=== PATIENT | male | born 1960 | race Caucasian/White ===

== ENCOUNTER 2021-02-12 17:06 | Emergency (ER) | payer OTHER ==
[~2021-02-12] VITALS: Ht 160 cm; Wt 78.9 kg
[2021-02-12] MEDS ORDERED: OMEPRAZOLE20 M2 PO (17:15)
[2021-02-12] MEDS ORDERED: ZESTRIL40 MG PO (17:15)
[2021-02-12] MEDS ORDERED: NEURONTIN400 MG PO (17:15)
[2021-02-12] MEDS ORDERED: B12 ACTIVE1000 MCG (17:16)
[2021-02-12] MEDS ORDERED: ASPIRIN81 MG PO (17:16)
[2021-02-12] MEDS ORDERED: NORTRIPTYLINE H25 MG (17:16)
[2021-02-12] MEDS ORDERED: LANTUS100 UNITS/ SUB-Q (17:17)
--- NOTE | 2021-02-14 13:50 | EKG ---
[facility] [address] [place], [place] [address] Signed Normal sinus rhythm Normal ECG No previous ECGs available Confirmed by MARY COLE DO ([id number]) on 02/14/2021 1:49:58 PM Electronically Signed By: MARY COLE DO 02/14/21 1350 PATIENT NAME: ANNE-MARIE ASH Electrocardiogram DATE OF : 58 PHYSICIAN: MARY COLE DO REPORT #: [id number] REPORT IS CONFIDENTIAL AND NOT TO BE RELEASED WITHOUT AUTHORIZATION
== END 2021-02-12 19:36 | disposition home or self-care (01) ==
LOC: ED 17:06
DX: R07.9 Chest pain, unspecified (principal); E10.9 Type 1 diabetes mellitus without complications; I10 Essential (primary) hypertension; Z79.899 Other long term (current) drug therapy; Z79.82 Long term (current) use of aspirin; Z79.4 Long term (current) use of insulin
CPT/HCPCS: 71045; 80053; 83735; 84484; 85025; 93005; 93010; 99285-25